=== PATIENT | female | born 1970 | race Caucasian/White ===

== ENCOUNTER 2019-07-07 13:41 | Emergency (ER) | payer OTHER ==
[2019-07-07] MEDS: Lidocaine 1% 20 ML MDV INJECT ONE (14:05)
[2019-07-07] MEDS: Diphtheria,Pertussis(Acell),Tetanus Vaccine 0.5 ML Syringe IM ONE (14:16)
--- NOTE | 2019-07-07 14:22 | EDM.PDOC ---
ED HPI GENERAL MEDICAL PROBLEM - General Chief Complaint: Laceration Stated Complaint: laceration Time Seen by Provider: 07/07/19 13:54 Source of Information: Reports: Patient History Limitations: Reports: No Limitations - History of Present Illness INITIAL COMMENTS - FREE TEXT/NARRATIVE: This patient is a 48 year old pleasantly nice female that presents to the ER. Patient reports cutting cucumbers when she accidently cut her right 3rd finger tip, not nail. Onset: Today Onset Date: 07/07/19 Severity: Mild Improves with: Reports: None Worsens with: Reports: None Associated Symptoms: Reports: No Other Symptoms Right Middle Finger-Middle Pain Score (Numeric/FACES): 1 - Related Data Allergies Allergy/AdvReac Type Severity Reaction Status Date / Time No Known Allergies Allergy Verified 07/07/19 13:51 Home Meds: Home Meds Aspirin 81 mg PO DAILY 07/07/19 [History] Cholecalciferol (Vitamin D3) [Vitamin D3] 2,000 units PO DAILY 07/07/19 [History ] Levothyroxine Sodium 150 mcg PO DAILY 07/07/19 [History] Meloxicam 15 mg PO DAILY 07/07/19 [History] Multivitamin [Multivitamins] 1 cap PO DAILY 07/07/19 [History] Tamoxifen [Nolvadex] 75 mg PO DAILY 07/07/19 [History] Past Medical History H[employer]ATOR History: Reports: Other (See Below) Musculoskeletal History: Reports: Other (See Below) Other Musculoskeletal History: Inflammatory arthritis Endocrine/Metabolic History: Reports: Hypothyroidism - Past Surgical History Female Surgical History: Reports: Hysterectomy, Other (See Below) Other Female Surgeries/Procedures: Breast lumpectomy Endocrine Surgical History: Reports: Thyroidectomy Social & Family History - Family History Family Medical History: Noncontributory - Tobacco Use Smoking Status *Q: Never Smoker - Recreational Drug Use Recreational Drug Use: No ED ROS GENERAL - Review of Systems Review Of Systems: See Below Musculoskeletal: Reports: No Symptoms Skin: Reports: Wound (laceration right 3rd digit tip) Neurological: Denies: Numbness, Tingling ED EXAM, SKIN/RASH Exam: See Below Exam Limited By: No Limitations General Appearance: Alert, No Apparent Distress Peripheral Pulses: 2+: Radial (R) Extremities: Normal Range of Motion (sensory/motor function intact. neurovascular intact right 4rd digit finger), Non-Tender, Normal Capillary Refill Neurological: Alert Skin: Warm, Dry, Normal Color, No Rash, Wound/Incision (laceration right 3rd digit 2cm) Location, Skin: Upper Extremity, Right ED SKIN PROCEDURES - Laceration/Wound Repair Right Anterior Distal Digit - 3rd (Middle) Appearance: Superficial Distal NVT: Neuro & Vascular Intact, No Tendon Injury Anesthetic Type: Local Local Anesthesia - Lidocaine (Xylocaine): 1% Plain Local Anesthetic Volume: 2cc Skin Prep: Chlorhexidine (Hibiciens) Saline Irrigation (cc's): 10 Exploration/Debridement/Repair: Wound Explored, In a Bloodless Field, Explored to Base, Wound Margins Revised Closed with: Sutures Lac/Wound length In cm: 2 Suture Size: 5-0 # of Sutures: 4 Tetanus Status Addressed: Yes Complications: No Course - Vital Signs Last Recorded V/S: Last Vital Signs Temp 97.8 F 07/07/19 13:43 Pulse 104 H 07/07/19 13:43 Resp 16 07/07/19 13:43 BP 126/74 07/07/19 13:43 Pulse Ox 98 07/07/19 13:43 - Orders/Labs/Meds Orders: Active Orders 24 hr Category Date Time Status Vaccines to be Administered [RC] PER UNIT ROUTINE Care 07/07/19 13:54 Active Meds: Medications Discontinued Medications Generic Name Dose Route Start Last Admin Trade Name Radha PRN Reason Stop Dose Admin Diphtheria/Tetanus/Acell Pertussis 0.5 ml 07/07/19 13:54 07/07/19 14:16 Adacel IM 07/07/19 13:55 0.5 ml .ONCE ONE Administration Lidocaine HCl 20 ml 07/07/19 13:54 07/07/19 14:05 Xylocaine 1% INJECT 07/07/19 13:55 20 ml ONETIME ONE Administration Departure - Departure Time of Disposition: 14:21 Disposition: Home, Self-Care 01 Condition: Good Clinical Impression: Laceration - Discharge Information *PRESCRIPTION DRUG MONITORING PROGRAM REVIEWED*: Not Applicable *COPY OF PRESCRIPTION DRUG MONITORING REPORT IN PATIENT ERICK: Not Applicable Instructions: Laceration Care, Adult, [id number], Stitches, Lizzie, or Adhesive Wound Closure, [id number] Forms: ED Department Discharge Additional Instructions: Followup with your primary care provider for suture removal Return to the ER for worsening of condition or any emergent concerns such as vomiting, fever, drainage from cut, heat at site Keep area clean and dry - My Orders Last 24 Hours: My Active Orders 07/07/19 13:54 Vaccines to be Administered [RC] PER UNIT ROUTINE - Assessment/Plan Last 24 Hours: My Active Orders 07/07/19 13:54 Vaccines to be Administered [RC] PER UNIT ROUTINE Plan: PLEASE SEE RN NOTE FOR PFSH.
== END 2019-07-07 14:26 | disposition home or self-care (01) ==
LOC: CC.ED 13:41
DX: S61.212A Laceration without foreign body of right middle finger without damage to nail, initial encounter (principal); Z23 Encounter for immunization; W26.8XXA Contact with other sharp object(s), not elsewhere classified, initial encounter
CPT/HCPCS: 12001; 90471; 90715; 99282; 99283; J2001; 12011